=== PATIENT | male | born 1930 | race Two or more races ===

== ENCOUNTER 2020-10-21 11:16 | Inpatient (IN) | payer OTHER ==
[~2020-10-21] VITALS: Ht 162.6 cm; Wt 54.4 kg
[2020-10-21] MEDS ORDERED: FINASTERIDE5 MG (11:37)
[2020-10-21] MEDS ORDERED: CILOSTAZOL50 MG (11:38)
[2020-10-21] MEDS ORDERED: REMINYL4 MG (11:38)
[2020-10-21] MEDS ORDERED: TAMS0.4C (11:38)
[2020-10-21] MEDS ORDERED: PRE PROTEIN1 EACH (11:39)
[2020-10-29] MEDS ORDERED: LORATADINE10 MG PO (17:49)
[2020-10-29] MEDS ORDERED: LUBRIDERM DAIL177 ML TOP (17:49)
[2020-10-29] MEDS ORDERED: VERDESO100 GM TOP (17:51)
[2020-10-29] MEDS ORDERED: AVIDOXY100 MG PO (17:52)
== END 2020-10-29 18:33 | disposition home or self-care (01) | DRG 603 ==
LOC: ER 11:16 → MEDJ 19:15 → MEDI 10-24 11:40 → MEDJ 10-27 01:07 → MEDI 10-27 16:40 → EDBD 10-29 18:33 → MEDI 10-29 18:33
PROVIDERS: ADMIT Internal Medicine; ATTEND Internal Medicine
PROC: 0HBCXZX Excision of Left Upper Arm Skin, External Approach, Diagnostic (ICD-10-PCS; principal; 2020-10-21)
PROC: B54NZZZ Ultrasonography of Left Upper Extremity Veins (ICD-10-PCS; 2020-10-22)
DX: L03.114 Cellulitis of left upper limb (principal); Z20.822 Contact with and (suspected) exposure to COVID-19; F32.9 Major depressive disorder, single episode, unspecified; G30.9 Alzheimer's disease, unspecified; F02.80 Dementia in other diseases classified elsewhere, unspecified severity, without behavioral disturbance, psychotic disturbance, mood disturbance, and anxiety; L30.8 Other specified dermatitis

== ENCOUNTER 2020-11-12 11:44 | Inpatient (IN) | payer OTHER ==
[~2020-11-12] VITALS: Ht 175.3 cm; Wt 72.6 kg
[~2020-11-12 11:44] MED LIST: AVIDOXY100 MG PO; CILOSTAZOL50 MG; FINASTERIDE5 MG; LORATADINE10 MG PO; LUBRIDERM DAIL177 ML TOP; PRE PROTEIN1 EACH; REMINYL4 MG; TAMS0.4C; VERDESO100 GM TOP
--- NOTE | 2020-11-12 12:18 | NUR ---
SE RECIBE PTE EN AMBULANCIA ACOMPANADO DE PERSONAL PARAMEDICO QUIENES REFIEREN QUE PTE PRESENTA DEBILIDAD Y EPISODIO DE VOMITO. SE INTENTA REALIZAR ENTREVISTA A PTE CLARIBEL EL MISMO PRESENTA HX NEUROLOGICO DE DEMENCIA. SE UBICA A PTE EN AREA DE OBSERVACION PARA EVALUACION MEDICA.
--- NOTE | 2020-11-12 13:41 | NUR ---
PACIENTE EVALUADO POR EL MEDICO EN TUR[place], SE VERIFICAN LAS ORDENES MEDICAS Y SE LE ORIENTA A AL PACIENTE SOBRE LAS MISMAS, REFIERE ENTENDER. SE LE REALIZAN LAS MUESTRAS DE CARMINA, MEDICAMENTOS ADMINISTRADOS Y SE LE REALIZAN LAS PLACAS VALENCIA LAS ORDENES MEDICAS.
--- NOTE | 2020-11-12 15:56 | NUR ---
SE RECIBE PT ALERTA, EN COMPANIA DE FAMILIAR, EN DORIAN CON BARANDAS ELEVADAS Y FRENOS COLOCADOS. VENOPUNCION E IVLFUIDS PATENTES. PT [place]. SE MANTIENE BAJO OBSERVACION POR CAMBIOS EN [place]. SE REALIZA COVID19 MOLECULAR. PT TRANQUILO Y SIN DIFICULTAD RESPIRATORIA.
[2020-11-13] MEDS ORDERED: AMMONIUM LACTA400 GM (11:08)
[2020-11-13] MEDS ORDERED: GABAPENTIN300 M2 (11:08)
[2020-11-13] MEDS ORDERED: LUBRIDERM ADVA177 ML (11:08)
[2020-11-13] MEDS ORDERED: CETIRIZINE HCL10 MG (11:08)
== END 2020-11-20 08:07 | disposition expired | DRG 641 ==
LOC: ER 11:44 → EDBD 11:48 → ER 11:48 → MEDJ 15:59 → SEC-K 15:59 → MEDJ 11-13 11:52
PROVIDERS: ADMIT Internal Medicine; ATTEND Internal Medicine
PROC: B54BZZZ Ultrasonography of Right Lower Extremity Veins (ICD-10-PCS; principal; 2020-11-12)
PROC: 3E0536Z Introduction of Nutritional Substance into Peripheral Artery, Percutaneous Approach (ICD-10-PCS; 2020-11-17)
PROC: BW28ZZZ Computerized Tomography (CT Scan) of Head (ICD-10-PCS; 2020-11-17)
DX: E86.0 Dehydration (principal); N17.8 Other acute kidney failure; I82.411 Acute embolism and thrombosis of right femoral vein; I82.421 Acute embolism and thrombosis of right iliac vein; I82.431 Acute embolism and thrombosis of right popliteal vein; Z20.822 Contact with and (suspected) exposure to COVID-19; G30.9 Alzheimer's disease, unspecified; F02.80 Dementia in other diseases classified elsewhere, unspecified severity, without behavioral disturbance, psychotic disturbance, mood disturbance, and anxiety; F32.9 Major depressive disorder, single episode, unspecified; Z74.01 Bed confinement status; D53.1 Other megaloblastic anemias, not elsewhere classified; E86.9 Volume depletion, unspecified; E87.0 Hyperosmolality and hypernatremia; Z66 Do not resuscitate